=== PATIENT | female | born 1995 | race Caucasian/White ===

== ENCOUNTER 2021-08-31 17:51 | Emergency (ER) | payer BC, OTHER ==
[~2021-08-31] VITALS: Ht 180.3 cm; Wt 165.9 kg
[2021-08-31 20:57] VITALS: BP 148/107
== END 2021-08-31 22:15 | disposition home or self-care (01) ==
LOC: ER 17:51
DX: M79.605 Pain in left leg (principal); R05.9 Cough, unspecified; R11.0 Nausea
CPT/HCPCS: 93971; 99284